=== PATIENT | male | born 1955 | race Caucasian/White ===

== ENCOUNTER 2022-01-17 14:10 | Emergency (ER) | payer MEDICARE, OTHER ==
[~2022-01-17] VITALS: Ht 182.9 cm; Wt 117.0 kg
--- NOTE | 2022-01-17 14:32 | ED Integumentary General ---
General Chief Complaint: Laceration Stated Complaint: LT GROIN LAC History of Present Illness Date Seen by Provider: Jan 17, 2022 Time Seen by Provider: 14:20 Initial Comments 66-year-old male presents with laceration to the left upper inner thigh. Clarisse mcdaniel was using a circular saw when it kicked back at him. He reports that the guard malfunction and he severed laceration to the left inner thigh. Happened approximately 30 minutes prior to arrival. He has an approximate 10 cm laceration. Patient is unsure when his last tetanus shot was patient suffered no other injury. Bleeding was controlled prior to arrival. Allergies and Home Medications Allergies Coded Allergies: No Known Drug Allergies (Unverified , 01/17/22) Patient Home Medication List Home Medication List Reviewed: Yes Review of Systems Review of Systems Constitutional: no symptoms reported EENTM: no symptoms reported Respiratory: no symptoms reported Cardiovascular: no symptoms reported Gastrointestinal: no symptoms reported Genitourinary: no symptoms reported Musculoskeletal: see HPI Skin: see HPI Psychiatric/Neurological: No Symptoms Reported Endocrine: No Symptoms Reported Physical Exam Vital Signs Vital Signs - First Documented 01/17/22 14:16 Temp 35.3 Pulse 76 Resp 16 B/P (MAP) 170/102 (124) Pulse Ox 99 O2 Delivery Room Air Capillary Refill : General Appearance: WD/WN, no apparent distress HEENT: PERRL/EOMI Neck: full range of motion, supple Cardiovascular: normal peripheral pulses, regular rate, rhythm Respiratory: lungs clear, normal breath sounds Extremities: normal range of motion Neurologic/Psychiatric: alert, normal mood/affect, oriented x 3 Skin Problem Location: lower extremities (Right upper thigh thigh) Skin Problem Character: other (Approximate 10 cm laceration through the subcutaneous fat) Procedures/Interventions Wound Location: Lower Extremities Other Wound Location Left upper thigh Wound's Depth, Shape: sub Q Wound Explored: no foreign body removed Irrigated w/ Saline (ccs): 1000 Betadine Prep?: Yes Anesthesia: 1% Lidocaine Suture: Ethlion, Prolene Suture Size: 3-0 Number of Sutures: 8 Layer Closure?: 2 Number Deep Layer Sutures: 1 Sterile Dressing Applied?: Yes Progress Patient was sutured with 1 subcutaneous running to approximate the tissue. Patient then had 2 running cutaneous sutures along the body of the wound and then on each in 3 of each, interrupted on the distal and proximal ends of the wound. Patient tolerated well with no immediate complication Progress/Results/Core Measures Results/Orders My Orders Orders - KORINA DE LA ROSA DO Dipht,Pertuss(Acell),Tet Adult (Boostrix (01/17/22 14:45) Medications Given in ED Current Medications Medications Dose Ordered Sig/Angeles Route Start Time Stop Time Status Last Admin Dose Admin Diphtheria/ Tetanus/Acell Pertussis 0.5 ml ONCE ONCE IM 01/17/22 14:45 01/17/22 14:46 DC 01/17/22 14:55 0.5 ML Vital Signs/I&O 01/17/22 14:16 Temp 35.3 Pulse 76 Resp 16 B/P (MAP) 170/102 (124) Pulse Ox 99 O2 Delivery Room Air Progress Progress Note : Progress Note Wound was explored throughout entire depth with no foreign body. patient tolerated laceration repair with no immediate complications. He was given a vaccination to date his tetanus. Recommend he keep clean with warm soapy water. He may use a thin layer of Vaseline. Do not submerge for 48 hours. No swimming until sutures are out. Departure Impression Primary Impression: Laceration of left thigh without complication Qualified Codes: S71.112A - Laceration without foreign body, left thigh, initial encounter Disposition: 01 HOME, SELF-CARE Condition: Stable Departure-Patient Inst. Referrals: NO,LOCAL PHYSICIAN (PCP/Family) Primary Care Physician Patient Instructions: Laceration Repair With Stitches ED Add. Discharge Instructions: Please have sutures out in approximately 10 days. You may go to your primary care provider for this. Keep clean with warm soapy water and bandages wet sterile dressing After 48 hours you may use a thin layer of Vaseline over the wound Do not submerge in water for at least 48 to 72 hours. No swimming until sutures are removed. Return to the ER or follow-up with your primary care provider with any concerns of increasing warmth drainage or other signs of infection All discharge instructions reviewed with patient and/or family. Voiced understanding. KORINA DE LA ROSA DO Jan 17, 2022 14:32
[2022-01-17] MEDS ORDERED: TETANUS,DIPTH,PERTUSS P/F (BOOSTRIX) 0.5 ML VIAL IM ONE (14:45)
[2022-01-17 15:30] VITALS: BP 170/102
== END 2022-01-17 15:30 | disposition home or self-care (01) ==
LOC: ER FS 14:12
DX: S71.112A Laceration without foreign body, left thigh, initial encounter (principal); Z23 Encounter for immunization; W31.2XXA Contact with powered woodworking and forming machines, initial encounter
CPT/HCPCS: 12034; 90715